=== PATIENT | female | born 1985 | race Caucasian/White ===

== ENCOUNTER 2016-11-20 09:19 | Emergency (ER) | payer BC, OTHER ==
[~2016-11-20] VITALS: Wt 53.6 kg
[2016-11-20] MEDS ORDERED: IBUP200C11 PO (09:57)
--- NOTE | 2016-11-20 12:41 | ERD ---
ER Documentation Chief Complaint Date/Time DATE: 11/20/16 TIME: 12:36 Chief Complaint RIGHT SIDE ABD PAIN POSSIBLE SWELLING DUE TO HERNIA. NO DYSURIA NOTED HPI Old female complaining of lump to right groin region 4 days. Patient has pain with palpation of lump. Denies change in urination or bowel movement. Last bowel movement was yesterday. Is passing gas without difficulty. No vomiting. Denies chest pain or shortness of breath. Denies abdominal pain. History kidney stones. Surgical history is cholecystectomy. Social history denies. NKDA. ROS All systems reviewed and are negative except as per history of present illness. Medications Home Meds Active Scripts Ibuprofen* (Advil*) 200 Mg Capsule, 200 MG PO QID, #30 CAP Prov:SPENCER JACKSON PA-C 11/20/16 PMhx/Soc Medical and Surgical Hx: pt denies Medical Hx, pt denies Surgical Hx Hx Alcohol Use: No Hx Substance Use: No Hx Tobacco Use: No Smoking Status: Never smoker Physical Exam Vitals Vital Signs Date Time Temp Pulse Resp B/P Pulse Ox O2 Delivery O2 Flow Rate FiO2 11/20/16 09:23 98.9 92 20 104/70 99 Physical Exam GENERAL: The patient is well-appearing, well-nourished, in no acute distress CHEST: Clear to auscultation bilaterally. There are no rales, wheezes or rhonchi. HEART: Regular rate and rhythm. No murmurs, clicks, rubs or gallops. No S3 or S4. ABDOMEN:Soft, nontender and nondistended. Good bowel sounds. No rebound or guarding. No gross peritonitis. No gross organomegaly or masses. SKIN: Pea shaped mass in the right inguinal fold. No surrounding erythema or fluctuance. Procedures/MDM MDM: 31-year-old female complaining of pea-shaped mass with no fold. I have low suspicion for bacterial infection. I do not feel there is indication for imaging or blood work at this time. Mass is well-circumscribed and the shape of the pea. It is likely a reactive lymph node. Patient will be discharged with strict ER precautions and recommended take ibuprofen for pain relief. Patient is told to use warm compresses on the site. Patient is told to follow- up with primary care within 1-2 days for close evaluation. All questions answered at discharge. Departure Diagnosis: Primary Impression: Lymph nodes enlarged Condition: Stable Patient Instructions: When Your Child Has Swollen Lymph Nodes Referrals: [facility] YOU HAVE RECEIVED A MEDICAL SCREENING EXAM AND THE RESULTS INDICATE THAT YOU DO NOT HAVE A CONDITION THAT REQUIRES URGENT TREATMENT IN THE EMERGENCY DEPARTMENT. FURTHER EVALUATION AND TREATMENT OF YOUR CONDITION CAN WAIT UNTIL YOU ARE SEEN IN YOUR DOCTORS OFFICE WITHIN THE NEXT 1-2 DAYS. IT IS YOUR RESPONSIBILITY TO MAKE AN APPOINTMENT FOR FOLOW-UP CARE. IF YOU HAVE A PRIMARY DOCTOR --you should call your primary doctor and schedule an appointment IF YOU DO NOT HAVE A PRIMARY DOCTOR YOU CAN CALL OUR PHYSICIAN REFERRAL HOTLINE AT IF YOU CAN NOT AFFORD TO SEE A PHYSICIAN YOU CAN CHOSE FROM THE FOLLOWING [facility] [address] [facility] [address] [facility] [facility] [address] [facility] [address] [facility] [address] [facility] [address] [facility] [address] Additional Instructions: FOLLOW UP WITH YOUR PRIMARY CARE PHYSICIAN TOMORROW.Return to this facility if you are not improving as expected. SPENCER JACKSON PA-C Nov 20, 2016 12:41
== END 2016-11-20 10:31 | disposition home or self-care (01) ==
LOC: EDSEX 09:19 → FTE 09:19
DX: R59.9 Enlarged lymph nodes, unspecified (principal)
CPT/HCPCS: 99283